=== PATIENT | female | born 1940 | race Caucasian/White ===

== ENCOUNTER 2019-01-18 13:28 | Observation (INO) ==
--- NOTE | 2019-01-18 14:52 | Emergency Department Note ---
Fall HPI - General Chief Complaint: Fall Stated Complaint: fall Time Seen by Provider: 01/18/19 14:48 Source: patient, family Mode of arrival: wheelchair - History of Present Illness HPI Narrative: 78-year-old female in ED with family present. Daughter does most of the talking for the patient. Daughter (Dalia) advises patient does live home alone, they visited daily and call every morning. Patient was seen 3:00 yesterday and called this morning. Daughter could tell patient was upset, patient stated she hurts all over. Daughter states patient has had increased falls over the last week, decreased appetite. Patient does have history is Alzheimer's and takes sertraline and Donepezil. Patient had her 3 month neuro check 2-3 weeks ago with no changes. Daughter feels this last week she has declined. Family went over to check on her this morning after the phone call and patient was laying in her bed and had blood on the floor and on her bed from her fall. MD Complaint: fall Onset (ago): hour(s) (12) Fall Witnessed: no Place Fall Occurred: home Loss of Consciousness: unsure Prolonged Down Time?: unclear Location of injury: head - Related Data Previous Rx's Medication Instructions Recorded HYDROcodone/APAP 5/325MG [[place] 1 tab PO Q4HP PRN #15 tab 01/14/18 5-325Mg] Ondansetron [Zofran ODT] 4 mg SL Q4-6HP PRN #10 tab 01/14/18 Tamsulosin [Flomax] 0.4 mg PO HS #3 cap 01/14/18 Potassium Chloride [Kdur] 10 meq PO ONCE 10 Days #10 tab 01/18/19 Allergies Allergy/AdvReac Type Severity Reaction Status Date / Time Penicillins Allergy Severe Unknown Verified 01/18/19 13:38 Review of Systems All systems ED: reviewed and negative except as stated. 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 Absent: conjunctival injection, periorbital swelling, periorbital tenderness ENT: normal oropharynx, mucous membranes dry, TM's normal bilaterally (right blocked with cerumen) Neck: Present: normal inspection, trachea midline. Absent: tenderness, lymphade nopathy Chest: Present: normal inspection, symmetric chest wall rise. Absent: tenderness Respiratory: Present: normal lung sounds bilaterally. Absent: respiratory distress, rales/crackles, wheezes Cardiovascular: Present: regular rate, normal rhythm. Absent: systolic murmur, diastolic murmur Abdominal: Present: soft, normal bowel sounds. Absent: distention, tenderness, guarding, rebound, rigidity Extremities: Present: normal inspection, other (bruising left hip, left knee, both old but within the last few days. Right forearm new with small abrasion) Back: Present: normal inspection, other (right CVA bruise-old within the last week). Absent: tenderness, CVA tenderness (R), CVA tenderness (L) Neurological: Present: alert Patient oriented to: Present: person. Absent: place, time Speech: Present: fluid speech Cranial nerves: EOM function (II, III, IV, ): Normal (slow with following and unable to fully look up), gag reflex (IX): Normal Cerebellar function: finger to nose: Normal Motor strength - LUE: 3/5 Motor strength - RUE: 3/5 Motor strength - LLE: 4/5 Motor strength - RLE: 4/5 Coma Scale Eye Opening: Spontaneous Coma Scale Motor Response: Obeys Commands Coma Scale Verbal Response: Oriented Coma Scale Total: 15 Psychiatric: Present: normal affect, normal mood, flat affect. Absent: depressed, agitated, anxious Skin: Present: warm, dry, intact, normal color. Absent: cool, diaphoretic Course Vital Signs Temperature 97.1 F 01/18/19 13:29 Pulse Rate 68 01/18/19 13:29 Respiratory Rate 16 01/18/19 13:29 Blood Pressure 105/66 01/18/19 13:29 Pulse Oximetry (%) 96 01/18/19 13:29 Temperature 97.1 F 01/18/19 13:29 Pulse Rate 78 01/18/19 17:42 Respiratory Rate 15 01/18/19 17:42 Blood Pressure 113/62 01/18/19 17:42 Pulse Oximetry (%) 95 01/18/19 17:42 Fall - MDM Narrative Medical decision making narrative: Daughter requested to talk to geriatric social worker to explore options to assist with her mother's care. She will provided list of additional services for in-home assistance. Patient's CT with normal age changes per her condition labs virtually unremarkab le except potassium was 2.7. 20 mEq K rider was started and family was notified of treatment plan. Daughter states patient has otherwise had a nervous stomach and does have mild diarrhea daily and has for years. Dr. Royal was consulted on patient's potassium and it was discussed 20 mEq K rider was appropriate. - Lab Data Lab results reviewed: Yes I reviewed the patient's lab results. Result diagrams: 01/18/19 14:27 01/18/19 14:27 Lab Results 01/18/19 01/18/19 01/18/19 Range/Units 14:20 14:27 14:27 WBC 7.9 (4.5-11.0) K/mcL RBC 5.18 (4.00-5.20) M/mcL Hgb 14.8 (12.0-15.0) g/dL Hct 45.1 (36.0-48.0) % MCV 87.0 (80.0-100.0) fL MCH 28.5 (26.0-34.0) pg MCHC 32.7 (31.0-36.0) g/dL RDW 14.4 (11.5-14.5) % Plt Count 200 (140-440) K/mcL MPV 10.1 (7.4-10.4) fL Gran % 85.3 H (38.0-78.0) % Lymph % (Auto) 6.1 L (15.5-49.0) % [place] % (Auto) 8.0 (1.0-12.0) % Eos % (Auto) 0.3 (0.0-7.0) % Baso % (Auto) 0.3 (0.0-2.0) % Gran # 6.8 (1.8-8.0) K/mcL Lymph # (Auto) 0.5 L (1.5-4.8) K/mcL [place] # (Auto) 0.6 (0.1-0.9) K/mcL Eos # (Auto) 0 (0.0-0.7) K/mcL Baso # (Auto) 0 (0.0-0.3) K/mcL Sodium 140 (133-145) mmol/L Potassium 2.7 L* (3.3-5.1) mmol/L Chloride 94 L (96-108) mmol/L Carbon Dioxide 29 (22-30) mmol/L Anion Gap 17.0 H (8-16) BUN 18 (8-23) mg/dl Creatinine 0.8 (0.6-1.1) mg/dl GFR Calculation 72 Glucose 158 H (70-105) mg/dL Calcium 9.3 (8.6-10.4) mg/dl Total Bilirubin 0.5 (0.0-1.0) mg/dL AST 21 (0-37) U/l ALT 13 (0-40) U/l Alkaline Phosphatase 67 (39-117) U/L Total Protein 6.8 (5.9-8.4) gm/dL Albumin 3.9 (3.2-5.2) gm/dL Globulin 2.9 (2.2-3.7) gm/dL Albumin/Globulin Ratio 1.3 (1.0-2.3) Urine Color Yellow Urine Appearance Hazy Urine pH 6.0 (5.0-9.0) Ur Specific [place] 1.021 (1.000-1.035) Urine Protein 30 A (NEG) mg/dL Urine Glucose (UA) Negative (NEG) mg/dL Urine Ketones 5/tr A (NEG) mg/dL Urine Occult Blood Neg (<0.03) mg/dL Urine Nitrate Neg (NEG) Urine Bilirubin Neg (NEG) mg/dL Urine Urobilinogen 2.0 A (NEG) mg/dL Ur Leukocyte Esterase Neg (NEG) /uL Urine RBC 1 (0-1) /hpf Urine WBC 6 H (0-4) /hpf Ur Squamous Epith Cells 1 (0-4) /hpf Ur Transition Epith Cell < 1 (0-2) /hpf Urine Bacteria 0 (0) /hpf Hyaline Casts 9 H (0-2) /lpf Urine Mucus Many A (0) /hpf Ur Culture Indicated? No - Radiology Data Radiology results reviewed: Yes I reviewed the patient's radiology results. Date of Service: 01/18/19 Procedure(s): CT head/brain wo con Accession Number(s): [id number] CLINICAL INFORMATION: Trauma COMPARISON: None. TECHNIQUE: 2.5 mm helical slices were obtained in the skull base to vertex. Following reconstruction, axial reformatted images were reviewed at bone and parenchymal windows. The exam was performed using radiation dose optimization techniques including, but not limited to, automated exposure control, adjustment of the mA and/or kV according to patient size and use of iterative reconstruction technique. FINDINGS: The ventricles, sulci, fissures, and cisterns are symmetrically enlarged compatible with mild age-related atrophy this is unchanged.. No extra-axial fluid collections are identified. Patchy chronic ischemic changes in the cerebral white matter expected for age - The cerebrum, brainstem and cerebellum are, otherwise, unremarkable. There is no evidence of hemorrhage, mass effect, or edema. Bone windows show no osseous abnormality. A 14 mm hematoma seen over the right parietal scalp region IMPRESSION: Mild atrophy and chronic ischemic changes in the the cerebral white matter expected for age. No change from 06/30/2017 MR. Interpreted and Authenticated by: Ronak Severino 01/18/19 Disposition Pt seen by [facility]/PA only: No ([place]) Clinical Impression: Hypokalemia Disposition: Home, Self-Care Condition: Good Instructions: Hypokalemia (ED) Additional Instructions: Follow-up with primary care within the next week to have potassium re-evaluated to verify it is stable. Return to ED with any additional concerns. Prescriptions: Potassium Chloride [Kdur] 10 meq PO ONCE 10 Days #10 tab Referrals: Lynnette Woods MD [Primary Care Provider] - Time of Disposition: 18:06
[2019-01-18 15:22] LABS: Basophils # (Auto) 0 K/mcL (0.0-0.3); Basophils % (Auto) 0.3 % (0.0-2.0); Eosinophils # (Auto) 0 K/mcL (0.0-0.7); Eosinophils % (Auto) 0.3 % (0.0-7.0); Granulocytes % (Auto) 85.3 % (38.0-78.0); Hematocrit 45.1 % (36.0-48.0); Hemoglobin 14.8 g/dL (12.0-15.0); Lymphocytes # (Auto) 0.5 K/mcL (1.5-4.8); Lymphocytes % (Auto) 6.1 % (15.5-49.0); Mean Corpuscular HGB Conc 32.7 g/dL (31.0-36.0); Mean Platelet Volume 10.1 fL (7.4-10.4); Monocytes # (Auto) 0.6 K/mcL (0.1-0.9); Platelet Count 200 K/mcL (140-440); RBC 5.18 M/mcL (4.00-5.20); Red Cell Distribution Width 14.4 % (11.5-14.5); WBC 7.9 K/mcL (4.5-11.0)
--- NOTE | 2019-01-18 15:35 | Cat Scan Report ---
CLINICAL INFORMATION: Trauma COMPARISON: None. TECHNIQUE: 2.5 mm helical slices were obtained in the skull base to vertex. Following reconstruction, axial reformatted images were reviewed at bone and parenchymal windows. The exam was performed using radiation dose optimization techniques including, but not limited to, automated exposure control, adjustment of the mA and/or kV according to patient size and use of iterative reconstruction technique. FINDINGS: The ventricles, sulci, fissures, and cisterns are symmetrically enlarged compatible with mild age-related atrophy this is unchanged.. No extra-axial fluid collections are identified. Patchy chronic ischemic changes in the cerebral white matter expected for age - The cerebrum, brainstem and cerebellum are, otherwise, unremarkable. There is no evidence of hemorrhage, mass effect, or edema. Bone windows show no osseous abnormality. A 14 mm hematoma seen over the right parietal scalp region IMPRESSION: Mild atrophy and chronic ischemic changes in the the cerebral white matter expected for age. No change from 06/30/2017 MR. Interpreted and Authenticated by: Ronak Severino 01/18/19
[2019-01-18 15:40] LABS: Appearance,Urine HAZY; Bacteria,Urine 0 /hpf (0); Bilirubin,Urine NEG (NEG); Color,Urine YELLOW; Culture Indicated,Urine NO; Glucose,Urine (UA) NEGATIVE (NEG); Ketones,Urine 5/TR mg/dL (NEG); Leukocyte Esterase,Urine NEG /uL (NEG); Mucus,Urine MANY /hpf (0); Nitrate,Urine NEG (NEG); Protein,Urine 30 mg/dL (NEG); Specific Gravity,Urine 1.021 (1.000-1.035); Urine Blood NEG mg/dL (<0.03); Urine Hyaline Cast 9 /lpf (0-2); Urine RBC 1 /hpf (0-1); Urine Squamous Epithelial Cell 1 /hpf (0-4); Urine Transitional Epi Cells < 1 /hpf (0-2); Urine WBC 6 /hpf (0-4)
[2019-01-18 15:50] LABS: ALT/SGPT 13 U/l (0-40); AST/SGOT 21 U/l (0-37); Albumin 3.9 gm/dL (3.2-5.2); Albumin/Globulin Ratio 1.3 (1.0-2.3); Alkaline Phosphatase 67 U/L (39-117); Bilirubin,Total 0.5 mg/dL (0.0-1.0); Blood Urea Nitrogen 18 mg/dl (8-23); Calcium 9.3 mg/dl (8.6-10.4); Carbon Dioxide 29 mmol/L (22-30); Chloride 94 mmol/L (96-108); Globulin 2.9 gm/dL (2.2-3.7); Glomerular Filtration Rate 72; Glucose 158 mg/dL (70-105)
[2019-01-18] MEDS ORDERED: POTASSIUM CHLORIDE 20 MEQ in DEXTROSE 5% IN WATER 250 ML IV ONE (15:54)
[2019-01-18 19:02] LABS: POC Blood Urea Nitrogen 20 mg/dl (8-23); POC CO2 28 mmol/L (22-30); POC Calcium, Ionized 1.11 mmol/L (1.16-1.32); POC Chloride 95 mmol/L (96-108); POC Creatinine 0.6 mg/dl (0.6-1.1); POC Glucose, Random 211 mg/dL (70-105); POC Potassium 2.6 mmol/L (3.3-5.1); POC Sodium 137 mmol/L (133-145)
[2019-01-18] MEDS ORDERED: ONDANSETRON 4 MG/2 ML VIAL IV PRN ×2 (20:00→21:09)
[2019-01-18] MEDS ORDERED: NALOXONE HCL 0.4 MG/ML VIAL IV PRN ×2 (20:00→21:09)
[2019-01-18] MEDS ORDERED: ACETAMINOPHEN 325 MG TABLET PO PRN ×2 (20:00→21:09)
--- NOTE | 2019-01-18 20:08 | Internal Med History&Physical ---
Medical - H&P: HPI Patient information: Note initiated : 01/18/19 at 8:05 pm Service Date, if different from initiated Date: [] Patient: Carmel Irvin a 78 y/o F admitted on for fall. Chief Complaint: [] History of present illness: Ms. Irvin is a 78 year old F with history of exam is dementia comes accompa nied by the daughter to the emergency room for evaluation of falls and weakness. The patient was noted normal yesterday around 4 PM. The patient lives by herself with family living close by. They called her every morning, to remind her to wake up and take her medications. She was nearly at her baseline status yesterday evening, this morning when the daughter called the patient was upset crying calling out that her back was hurting. When they went to check on her they noted that there was some blood on the floor as well as some blood on the pillowcase. The patient was later brought to the emergency room for evaluation According to the family the patient has not eaten well for the last few weeks. She has a history of Alzheimer's dementia, and her condition seems to have worsened over 3 to 4 weeks. She does not feel like eating much and needs coaxing to eat something. They have not noticed any other complaints or concerns from the patient. They have not seen her cough not have the seen or go to the bathroom often they have not seen any fevers chills or any other unusual behavior. No recent changes in medications have been done. On presenting to the emergency room patient is hemodynamically stable, labs revealed a low potassium of 2.6, 20 mg once of potassium was given without significant improvement in the patient's potassium level patient was therefore presented to the hospital for admission. Patient is unable to provide any meaningful history she is able to answer questions regarding the present state but unable to provide any past history. Most of the history was from the daughter who was at the bedside ROS unobtainable: due to mental status Medical - H&P: PM Medical history: Alzhimers Renal stones Family history: reviewed and not pertinent Social history: lives by self non smoker, no etoh Medical - H&P: Meds Home Medications Medication Instructions Recorded Confirmed Type HYDROcodone/APAP 5/325MG [[place] 1 tab PO Q4HP PRN #15 tab 01/14/18 Rx 5-325Mg] Ondansetron [Zofran ODT] 4 mg SL Q4-6HP PRN #10 tab 01/14/18 Rx Tamsulosin [Flomax] 0.4 mg PO HS #3 cap 01/14/18 Rx Potassium Chloride [Kdur] 10 meq PO ONCE 10 Days #10 tab 01/18/19 Rx Allergies Allergy/AdvReac Type Severity Reaction Status Date / Time Penicillins Allergy Severe Unknown Verified 01/18/19 13:38 Medical - H&P: Exam - Constitutional Vitals: Temp Pulse Resp BP Pulse Ox 98.8 F 78 18 113/57 97 01/18/19 19:06 01/18/19 19:06 01/18/19 19:06 01/18/19 19:06 01/18/19 19:06 Exam: GENERAL: The patient is thin frail old lady alert oriented x1 VITAL SIGNS: Reviewed and as noted elsewhere. HEENT: Head is normocephalic and atraumatic. Extraocular muscles are intact. Pupils are equal, round, and reactive to light. Nares appeared normal. Mouth terry ears any without lesions. Mucous membranes are dry. On the right posterior aspect of the scalp there is a small clot, no active bleeding no obvious laceration NECK: Normal to inspection, Supple, No lymphadenopathy or thyromegaly. LUNGS: Air entry equal on both sides, no wheezing, crackles or rhonchi noted. No accessory muscles of respiration HEART: Regular rate and rhythm normal, S1 and S2 heard, no Gallop, S3 or Rub Noted, No Gross murmur heard. ABDOMEN: Soft, nontender, and nondistended. Positive bowel sounds. No hepatosplenomegaly was noted. EXTREMITIES: No cyanosis, clubbing, rash, lesions or edema. NEUROLOGIC: Cranial nerves II through XII are grossly intact. Motor and Sensory System Grossly Intact PSYCHIATRIC: Pleasantly demented. SKIN: No ulceration or wounds noted, No jaundice, No rash noted. Medical - H&P: Reslt - Labs CBC & Chem 7: 01/18/19 14:27 01/18/19 14:27 Labs: Short CBC 01/18/19 Range/Units 14:27 WBC 7.9 (4.5-11.0) K/mcL Hgb 14.8 (12.0-15.0) g/dL Hct 45.1 (36.0-48.0) % Plt Count 200 (140-440) K/mcL BMP 01/18/19 14:27 Sodium 140 Potassium 2.7 L* Chloride 94 L Carbon Dioxide 29 BUN 18 Creatinine 0.8 Glucose 158 H Calcium 9.3 Liver Function 01/18/19 Range/Units 14:27 Total Bilirubin 0.5 (0.0-1.0) mg/dL AST 21 (0-37) U/l ALT 13 (0-40) U/l Alkaline Phosphatase 67 (39-117) U/L Albumin 3.9 (3.2-5.2) gm/dL Urine 01/18/19 Range/Units 14:20 Urine Color Yellow Urine Appearance Hazy Urine pH 6.0 (5.0-9.0) Ur Specific [place] 1.021 (1.000-1.035) Urine Protein 30 A (NEG) mg/dL Urine Glucose (UA) Negative (NEG) mg/dL Medical - H&P: A/P - Narrative A/P Narrative: A/P Severe Hypokalemia -due to decreased oral intake -IV and oral replacements, MG normal -check urine K level, not on diuretcs Dementia -conservatrive management, -on sertraline as per family for agitation, -start on thiamine, MV supplements Weakness/Increased falls -due to low K and decreased appetite -OT/PT/ST rehab. DVT hep sq DNR code status Soft diet.
[2019-01-18] MEDS ORDERED: HEPARIN 5,000 UNIT/ML VIAL SQ SCH (21:00)
[2019-01-18] MEDS ORDERED: THIAMINE 100 MG TABLET PO SCH (21:00)
[2019-01-18] MEDS ORDERED: FOLIC ACID/VITAMIN B COMP W-C 1 TAB TABLET PO SCH (21:00)
[2019-01-18] MEDS ORDERED: FAMOTIDINE 20 MG TABLET PO SCH (21:00)
[2019-01-18] MEDS ORDERED: POTASSIUM CHLORIDE 40 MEQ in DEXTROSE 5% IN WATER 500 ML IV ONE (21:09)
[2019-01-18] MEDS ORDERED: OLANZapine 10 MG VIAL IM PRN (21:09)
[2019-01-18] MEDS ORDERED: POTASSIUM CHLORIDE 20 MEQ PACKET PO ONE (21:09)
[2019-01-18] MEDS ORDERED: POTASSIUM CHLORIDE 20 MEQ/10 ML VIAL IV ONE (21:25)
[2019-01-18] MEDS: 0.9 % SODIUM CHLORIDE 10 ML SYRINGE IV SCH (21:41)
[2019-01-18] MEDS ORDERED: 0.9 % SODIUM CHLORIDE 10 ML SYRINGE IV SCH (22:00)
--- NOTE | 2019-01-19 03:50 | XRay Report ---
CLINICAL INFORMATION: fall - trauma, COMPARISON: None. FINDINGS: The heart size, mediastinum and pulmonary vessels are unremarkable. The lungs are clear. There are no effusions. The bones and soft tissues are within normal limits. IMPRESSION: Normal chest. Interpreted and Authenticated by: Ronak Severino 01/19/19
--- NOTE | 2019-01-19 03:52 | XRay Report ---
CLINICAL INFORMATION: Trauma - fall COMPARISON: None. FINDINGS: Lumbar spine is anatomically aligned. Mild chronic appearing T10, T11-T12 and L1 wedge compression fractures are noted. There is also moderate degenerative disc disease T10-11 and T11-T12 and mild degenerative disease L1-2. Mild degenerative disease also present at L4-5 and L5-S1. Moderate degenerative facet disease L5-S1. SI joints are normal. No soft tissue abnormality. IMPRESSION: No acute posttraumatic change. Degenerative change and mild chronic wedging T10-L1 vertebral bodies Interpreted and Authenticated by: Ronak Severino 01/19/19
--- NOTE | 2019-01-19 03:54 | XRay Report ---
CLINICAL INFORMATION: Fall - trauma COMPARISON: None. FINDINGS: No fracture identified. Mild osteoporosis noted. There is mild degenerative change both SI and hip joints. Soft tissues normal IMPRESSION: No fracture or posttraumatic change Interpreted and Authenticated by: Ronak Severino 01/19/19
[2019-01-19] MEDS: 0.9 % SODIUM CHLORIDE 10 ML SYRINGE IV SCH (05:16)
[2019-01-19 06:10] LABS: ALT/SGPT 12 U/l (0-40); AST/SGOT 21 U/l (0-37); Albumin 3.4 gm/dL (3.2-5.2); Albumin/Globulin Ratio 1.2 (1.0-2.3); Alkaline Phosphatase 60 U/L (39-117); Bilirubin,Direct < 0.2 mg/dL (0.0-0.3); Bilirubin,Total 0.5 mg/dL (0.0-1.0); Blood Urea Nitrogen 14 mg/dl (8-23); Calcium 8.8 mg/dl (8.6-10.4); Carbon Dioxide 25 mmol/L (22-30); Chloride 101 mmol/L (96-108); Globulin 2.9 gm/dL (2.2-3.7); Glomerular Filtration Rate 89; Glucose 98 mg/dL (70-105); Lactate Dehydrogenase 251 U/L (94-250); Phosphorous 1.6 mg/dL (2.7-4.5); Triglycerides 124 mg/dl (<150); Uric Acid 2.8 mg/dL (2.5-8.0)
[2019-01-19 06:35] LABS: Basophils # (Auto) 0 K/mcL (0.0-0.3); Basophils % (Auto) 0.4 % (0.0-2.0); Eosinophils # (Auto) 0.1 K/mcL (0.0-0.7); Eosinophils % (Auto) 1.4 % (0.0-7.0); Granulocytes % (Auto) 67.9 % (38.0-78.0); Hematocrit 42.4 % (36.0-48.0); Hemoglobin 13.9 g/dL (12.0-15.0); Lymphocytes # (Auto) 0.8 K/mcL (1.5-4.8); Lymphocytes % (Auto) 15.9 % (15.5-49.0); Mean Cell Volume 86.9 fL (80.0-100.0); Mean Corpuscular HGB Conc 32.7 g/dL (31.0-36.0); Mean Platelet Volume 9.6 fL (7.4-10.4); Monocytes # (Auto) 0.7 K/mcL (0.1-0.9); Monocytes % (Auto) 14.4 % (1.0-12.0); Platelet Count 187 K/mcL (140-440); RBC 4.87 M/mcL (4.00-5.20); Red Cell Distribution Width 14.6 % (11.5-14.5); WBC 5.1 K/mcL (4.5-11.0)
[2019-01-19] MEDS ORDERED: POTASSIUM CHLORIDE 20 MEQ PACKET PO ONE (07:12)
[2019-01-19] MEDS ORDERED: HEPARIN 5,000 UNIT/ML VIAL SQ SCH (09:00)
[2019-01-19] MEDS ORDERED: FAMOTIDINE 20 MG TABLET PO SCH (09:00)
--- NOTE | 2019-01-19 10:36 | Discharge Summary ---
Medical - DS: Prov Patient information: Note initiated : 01/19/19 at 10:31 am Service Date, if different from initiated Date: [] Patient: Carmel Irvin a 78 y/o F admitted on 01/18/19 for Fall. Chief Complaint: [] Date of admission: 01/18/19 20:55 Discharge date: 01/19/19 Primary care physician: Lynnette Woods Consults: 01/18/19 Consult to Physician [CONS] Stat Comment: Consulting Provider: Kevin Spring Reason For Exam: Physician to Consult Discharging clinician: Kevin Spring Medical - DS: Meds - Discharge Medications Prescriptions: Multivit,Ther Iron,Ca,FA & Min [Multivitamin W/Minerals] 1 tab PO DAILY #100 tab Potassium Chloride [Kdur] 10 meq PO DAILY #30 tab Active and Home Medications: Home Medications Potassium Chloride [Kdur] 10 meq PO ONCE 10 Days #10 tab 01/18/19 [Rx Last Taken Unknown] Sertraline [Zoloft] 50 mg PO DAILY 01/18/19 [History Confirmed 01/18/19 Last Taken Unknown] Medical - DS: Hosp Hospital course: Ms. Irvin is a 78 year old F with history of exam is dementia comes accompanied by the daughter to the emergency room for evaluation of falls and weakness. The patient was noted normal yesterday around 4 PM. The patient lives by herself with family living close by. They called her every morning, to remind h er to wake up and take her medications. She was nearly at her baseline status yesterday evening, this morning when the daughter called the patient was upset crying calling out that her back was hurting. When they went to check on her they noted that there was some blood on the floor as well as some blood on the pillowcase. The patient was later brought to the emergency room for evaluation According to the family the patient has not eaten well for the last few weeks. She has a history of Alzheimer's dementia, and her condition seems to have worsened over 3 to 4 weeks. She does not feel like eating much and needs coaxing to eat something. They have not noticed any other complaints or concerns from the patient. They have not seen her cough not have the seen or go to the bathroom often they have not seen any fevers chills or any other unusual behavior. No recent changes in medications have been done. On presenting to the emergency room patient is hemodynamically stable, labs reve aled a low potassium of 2.6, 20 mg once of potassium was given without significant improvement in the patient's potassium level patient was therefore presented to the hospital for admission. Patient is unable to provide any meaningful history she is able to answer questions regarding the present state but unable to provide any past history. Most of the history was from the daughter who was at the bedside 01/19 Patient seen and examined, no acute overnight events was sitting comfortably in the chair tolerating p.o. diet well. She is pleasantly demented and has a short attention span. She is hypokalemic because of decreased p.o. intake. Her potassium level today is 3.3 we can give her another 40 meq of p.o. potassium and discharge her with 10 mEq daily for at least 1 month. The patient also was advised to start a multivitamin supplement. X-rays of the lower spine and the hip were negative, head CT was negative chest x-ray was negative urine analysis not suggestive for infection. At this point I feel safe for discharging patient back home she would benefit with supervision with regards to her meals. Discharge diagnosis: Hypokalemia - Time Spent with Patient Total time spent providing and/or coordinating discharge services: Less than 30 minutes Medical - DS: Exam - Constitutional Vitals: Vital Signs Temp Pulse Pulse Resp BP BP BP 01/19/19 08:00 95 H 01/19/19 06:38 99.2 F H 14 101/79 01/19/19 00:01 74 113/66 01/18/19 23:33 62 01/18/19 23:31 98.3 F 66 117/69 01/18/19 22:00 98.1 F 80 18 110/67 01/18/19 21:46 69 110/67 01/18/19 21:31 100/61 01/18/19 21:20 80 111/76 01/18/19 21:00 98.8 F 77 18 111/76 01/18/19 20:55 01/18/19 20:40 98.8 F 78 18 105/66 01/18/19 19:06 98.8 F 78 18 113/57 01/18/19 18:14 67 16 127/70 01/18/19 17:42 78 15 113/62 01/18/19 16:53 74 110/63 01/18/19 15:45 70 18 98/68 01/18/19 13:29 97.1 F 68 16 105/66 Pulse Ox 01/19/19 08:00 01/19/19 06:38 01/19/19 00:01 98 01/18/19 23:33 98 01/18/19 23:31 98 01/18/19 22:00 100 01/18/19 21:46 98 01/18/19 21:31 01/18/19 21:20 97 01/18/19 21:00 97 01/18/19 20:55 99 01/18/19 20:40 97 01/18/19 19:06 97 01/18/19 18:14 98 01/18/19 17:42 95 01/18/19 16:53 96 01/18/19 15:45 97 01/18/19 13:29 96 Intake and Output 01/18/19 01/19/19 01/19/19 21:59 05:59 13:59 Intake Total 260 60 Output Total 400 50 Balance 260 -400 10 Intake: IV 260 Potassium Chloride 20 Meq In 260 Dextrose 5% in Water 250 ml @ 130 mls/hr IV ONCE ONE Rx#: [id number] Oral 60 Output: Void Amount 400 50 Other: Meal Breakfast Percent of Meal Consumed 25% Feeding Ability Independent Urine Appearance Clear Urine Color Bright Yellow Dark Yellow Weight 116 lb 12.8 oz 118 lb 2 oz Patient Weight 01/20/19 05:59 Weight 118 lb 2 oz Additional comments: Constitutional; Afebrile, cooperative, alert, not in distress. Respiratory system: Air Entry equal on both sides, No crackles or wheezing, no rhonchi. CVS- Rate rhythm regular, S1,S2 heard, no gallop, no rub. Abdomen- Soft nontender abdomen, no organomegaly, no tenderness, no guarding or rigidity, MACHINE PULLER- AOOx1, moving all extremities, no gross focal deficit noted. Medical - DS: Data Labs on day of discharge: Labs from last 24 hours 01/19/19 01/19/19 01/18/19 03:39 03:39 18:53 WBC 5.1 RBC 4.87 Hgb 13.9 Hct 42.4 POC Hct 41.0 MCV 86.9 MCH 28.4 MCHC 32.7 RDW 14.6 H Plt Count 187 MPV 9.6 Gran % 67.9 Lymph % (Auto) 15.9 [place] % (Auto) 14.4 H Eos % (Auto) 1.4 Baso % (Auto) 0.4 Gran # 3.5 Lymph # (Auto) 0.8 L [place] # (Auto) 0.7 Eos # (Auto) 0.1 Baso # (Auto) 0 POC Sodium 137 Sodium 139 POC Potassium 2.6 L* Potassium 3.3 POC Chloride 95 L Chloride 101 Carbon Dioxide 25 POC Total CO2 28 Anion Gap 13.0 POC BUN 20 BUN 14 Creatinine 0.6 POC Creatinine 0.6 GFR Calculation 89 Glucose 98 POC Glucose 211 H Uric Acid 2.8 Calcium 8.8 POC WB Ioniz Calcium 1.11 L Phosphorus 1.6 L Magnesium 1.8 Total Bilirubin 0.5 Direct Bilirubin < 0.2 GGT 14 AST 21 ALT 12 Alkaline Phosphatase 60 Lactate Dehydrogenase 251 H Total Protein 6.3 Albumin 3.4 Globulin 2.9 Albumin/Globulin Ratio 1.2 Triglycerides 124 Urine Color Urine Appearance Urine pH Ur Specific Hood Urine Protein Urine Glucose (UA) Urine Ketones Urine Occult Blood Urine Nitrate Urine Bilirubin Urine Urobilinogen Ur Leukocyte Esterase Urine RBC Urine WBC Ur Squamous Epith Cells Ur Transition Epith Cell Urine Bacteria Hyaline Casts Urine Mucus Ur Culture Indicated? Ur Random Potassium 01/18/19 01/18/19 01/18/19 14:27 14:27 14:27 WBC 7.9 RBC 5.18 Hgb 14.8 Hct 45.1 POC Hct MCV 87.0 MCH 28.5 MCHC 32.7 RDW 14.4 Plt Count 200 MPV 10.1 Gran % 85.3 H Lymph % (Auto) 6.1 L [place] % (Auto) 8.0 Eos % (Auto) 0.3 Baso % (Auto) 0.3 Gran # 6.8 Lymph # (Auto) 0.5 L [place] # (Auto) 0.6 Eos # (Auto) 0 Baso # (Auto) 0 POC Sodium Sodium 140 POC Potassium Potassium 2.7 L* POC Chloride Chloride 94 L Carbon Dioxide 29 POC Total CO2 Anion Gap 17.0 H POC BUN BUN 18 Creatinine 0.8 POC Creatinine GFR Calculation 72 Glucose 158 H POC Glucose Uric Acid Calcium 9.3 POC WB Ioniz Calcium Phosphorus Magnesium 1.9 Total Bilirubin 0.5 Direct Bilirubin GGT AST 21 ALT 13 Alkaline Phosphatase 67 Lactate Dehydrogenase Total Protein 6.8 Albumin 3.9 Globulin 2.9 Albumin/Globulin Ratio 1.3 Triglycerides Urine Color Urine Appearance Urine pH Ur Specific Hood Urine Protein Urine Glucose (UA) Urine Ketones Urine Occult Blood Urine Nitrate Urine Bilirubin Urine Urobilinogen Ur Leukocyte Esterase Urine RBC Urine WBC Ur Squamous Epith Cells Ur Transition Epith Cell Urine Bacteria Hyaline Casts Urine Mucus Ur Culture Indicated? Ur Random Potassium 01/18/19 01/18/19 14:20 14:20 WBC RBC Hgb Hct POC Hct MCV MCH MCHC RDW Plt Count MPV Gran % Lymph % (Auto) [place] % (Auto) Eos % (Auto) Baso % (Auto) Gran # Lymph # (Auto) [place] # (Auto) Eos # (Auto) Baso # (Auto) POC Sodium Sodium POC Potassium Potassium POC Chloride Chloride Carbon Dioxide POC Total CO2 Anion Gap POC BUN BUN Creatinine POC Creatinine GFR Calculation Glucose POC Glucose Uric Acid Calcium POC WB Ioniz Calcium Phosphorus Magnesium Total Bilirubin Direct Bilirubin GGT AST ALT Alkaline Phosphatase Lactate Dehydrogenase Total Protein Albumin Globulin Albumin/Globulin Ratio Triglycerides Urine Color Yellow Urine Appearance Hazy Urine pH 6.0 Ur Specific Hood 1.021 Urine Protein 30 A Urine Glucose (UA) Negative Urine Ketones 5/tr A Urine Occult Blood Neg Urine Nitrate Neg Urine Bilirubin Neg Urine Urobilinogen 2.0 A Ur Leukocyte Esterase Neg Urine RBC 1 Urine WBC 6 H Ur Squamous Epith Cells 1 Ur Transition Epith Cell < 1 Urine Bacteria 0 Hyaline Casts 9 H Urine Mucus Many A Ur Culture Indicated? No Ur Random Potassium 10.7 Medical - DS: A/P - Patient/Caregiver Discharge Instructions Activity: increase activity as tolerated Diet: Regular Diet Additional Instructions: Follow-up with your primary provider in 1 week Take potassium supplement 1 tablet once a day with meals in the morning Add a multivitamin supplement daily Consider using a nutritional supplement drink twice daily to maintain adequate nutrition if patient is unable to eat well Prescriptions: Potassium Chloride [Kdur] 10 meq PO ONCE 10 Days #10 tab - Follow up Plan Follow up with: Lynnette Woods MD [Primary Care Provider] - Disposition: Home, Self-Care Prognosis: Fair Rehab Potential: Fair I certify that the patient requires SNF services: No Overall status at discharge: patient is progressing back to baseline Medical - DS: Qual - VTE Deep Vein Thrombosis/Pulmonary Embolism Present on Admission: No
[2019-01-20] MEDS ORDERED: PNEUMOCOCCAL 23-VAL P-SAC VAC 0.5 ML SYRINGE IM ONE (10:00)
== END 2019-01-19 14:30 | disposition home or self-care (01) ==
LOC: ED 13:28 → ICU 13:28
PROVIDERS: ADMIT Internal Medicine; ATTEND Internal Medicine

== ENCOUNTER 2019-09-11 15:06 | Inpatient (IN) ==
--- NOTE | 2019-09-11 15:56 | XRay Report ---
CLINICAL INFORMATION: fall, pain, dec rom COMPARISON: 01/18/2019 FINDINGS: A mildly impacted mildly displaced acute subcapital fracture of the right hip appreciated No other osseous abnormality. SI and hip joints are normal in width and alignment. Soft tissues normal. IMPRESSION: Acute mildly displaced subcapital fracture - right hip Interpreted and Authenticated by: Ronak Severino 09/11/19
--- NOTE | 2019-09-11 15:56 | XRay Report ---
CLINICAL INFORMATION: Trauma. COMPARISON: 01/18/2019. TECHNIQUE: Portable chest FINDINGS: The heart size, mediastinum and pulmonary vessels are unremarkable. The lungs are clear. There are no effusions. The bones and soft tissues are within normal limits. IMPRESSION: Normal chest. Interpreted and Authenticated by: Ronak Severino 09/11/19
[2019-09-11] MEDS ORDERED: ONDANSETRON 4 MG/2 ML VIAL IV ONE (16:08)
[2019-09-11] MEDS ORDERED: HYDROmorphone 2 MG/ML VIAL IV PRN (16:08)
--- NOTE | 2019-09-11 16:38 | Emergency Department Note ---
Fall HPI - General Chief Complaint: Fall Stated Complaint: Fall Time Seen by Provider: 09/11/19 15:12 Source: patient Mode of arrival: wheelchair - History of Present Illness HPI Narrative: 78-year-old female presents with right hip pain. Onset about 2 hours ago. She was walking outside because it was a nice day and a car passed her and the noise kind of scared her and she stepped off a curb and tripped. Fell onto the right hip she believes. She has dementia and it is hard for her to remember things. This is her baseline according to family. According to family who is with her she is acting normal and baseline as well. Denies hitting her head. No loss of consciousness. She can recall the event. Believes she last ate and drank at 1130 today but she cannot be sure. Denies being on any blood thinners. No head, neck, or back pain. Denies any other injuries. - Related Data Home Medications Medication Instructions Recorded Confirmed Sertraline [Zoloft] 50 mg PO DAILY 01/18/19 09/11/19 Donepezil 10 mg PO DAILY 09/11/19 09/11/19 Previous Rx's Medication Instructions Recorded Multivit,Ther Iron,Ca,FA & Min 1 tab PO DAILY #100 tab 01/19/19 [Multivitamin W/Minerals] Potassium Chloride [Kdur] 10 meq PO DAILY #30 tab 01/19/19 Allergies Allergy/AdvReac Type Severity Reaction Status Date / Time Penicillins Allergy Severe Unknown Verified 01/18/19 13:38 Review of Systems All systems ED: reviewed and negative except as stated. Fall PMH - Past Medical History Medical history: Reports: other (Dementia) Reports: Recurrent Falls (within last week) Surgical history ED: Reports: non-contributory Psychiatric history: Reports: other (Dementia/memory loss) [employer] history: Reports: non-contributory - Social History smoking status: Never smoker Alcohol use: Reports: None Drug use: Reports: none Physical Exam Limitations: no limitations General appearance: alert, other (Pleasant and oriented x3 but often forgetful) Head: atraumatic, normocephalic, normal inspection Eye: Present: normal appearance, PERRL. Absent: conjunctival injection ENT: Present: normal exam, normal oropharynx, mucous membranes moist, normal external ear exam Neck: Present: normal inspection, full ROM, trachea midline. Absent: tenderness Chest: Present: symmetric chest wall rise Respiratory: Present: normal lung sounds bilaterally. Absent: respiratory distress, rales/crackles, wheezes, accessory muscle use Cardiovascular: Present: regular rate, normal heart sounds Extremities: Present: normal inspection. Absent: full ROM (Greatly limited active and passive range of motion to the right hip related to pain. No shortening or rotation. Sensation intact to lower extremities bilaterally. Skin is intact and there is no edema) Neurological: Present: alert, oriented X3 Coma Scale Eye Opening: Spontaneous Coma Scale Motor Response: Obeys Commands Coma Scale Verbal Response: Oriented Coma Scale Total: 15 Psychiatric: Present: normal affect, normal mood Skin: Present: warm, dry, intact, normal color Course Course Narrative: At 1625 Dr. Hardin is here seeing the patient. We are going to go ahead and admit and plan for surgery tomorrow as she cannot be sure the last time she ate or drink. Family is also with her and is agreeable. Vital Signs Temperature 97.7 F 09/11/19 15:08 Pulse Rate 73 09/11/19 15:08 Respiratory Rate 16 09/11/19 15:08 Blood Pressure 133/69 09/11/19 15:08 Pulse Oximetry (%) 96 09/11/19 15:08 Temperature 97.7 F 09/11/19 15:08 Pulse Rate 73 09/11/19 15:08 Respiratory Rate 16 09/11/19 15:08 Blood Pressure 133/69 09/11/19 15:08 Pulse Oximetry (%) 96 09/11/19 15:08 Fall - Lab Data Lab results reviewed: Yes I reviewed the patient's lab results. - Radiology Data Radiology results reviewed: Yes I reviewed the patient's radiology results. Disposition Pt seen by COAL GASIFICATION TECHNICIAN/PA only: Yes Clinical Impression: Fall, Closed right hip fracture Disposition: Xfer As Inpt ([facility]) Condition: Fair Referrals: Lynnette Woods MD [Primary Care Provider] - Giuliano Fernandez MD [Physician] - Time of Disposition: 16:39
[2019-09-11 17:14] LABS: Basophils # (Auto) 0.07 K/mcL (0.00-0.30); Basophils % (Auto) 0.7 % (0.0-2.0); Eosinophils # (Auto) 0.06 K/mcL (0.00-0.70); Eosinophils % (Auto) 0.6 % (0.0-7.0); Granulocytes % (Auto) 80.1 % (38.0-78.0); Hematocrit 35.9 % (34.1-44.9); Hemoglobin 11.8 g/dL (11.2-15.7); Lymphocytes # (Auto) 0.99 K/mcL (1.50-4.80); Lymphocytes % (Auto) 9.9 % (15.5-49.0); Mean Corpuscular HGB Conc 32.9 g/dL (31.0-36.0); Mean Platelet Volume 10.9 fL (7.4-10.4); Monocytes # (Auto) 0.87 K/mcL (0.10-0.90); Monocytes % (Auto) 8.7 % (1.0-12.0); Platelet Count 257 K/mcL (140-440); RBC 4.08 M/mcL (3.59-5.38); Red Cell Distribution Width 12.7 % (11.5-14.5)
[2019-09-11 17:34] LABS: Blood Urea Nitrogen 20 mg/dl (8-23); Calcium 9.4 mg/dl (8.6-10.4); Carbon Dioxide 26 mmol/L (22-30); Chloride 104 mmol/L (96-108); Glomerular Filtration Rate 84; Glucose 109 mg/dL (70-105)
[2019-09-11 18:10] LABS: Appearance,Urine HAZY; Bilirubin,Urine NEG (NEG); Color,Urine YELLOW; Culture Indicated,Urine NO; Glucose,Urine (UA) NEGATIVE (NEG); Ketones,Urine NEG (NEG); Leukocyte Esterase,Urine NEG /uL (NEG); Nitrate,Urine NEG (NEG); Protein,Urine NEG (NEG); Specific Gravity,Urine 1.018 (1.000-1.035); Urine Blood NEG mg/dL (<0.03); Urobilinogen,Urine NEG (NEG)
[2019-09-11] MEDS ORDERED: HYDROmorphone 2 MG/ML VIAL ONE (18:49)
--- NOTE | 2019-09-11 19:51 | Consultation ---
DATE OF CONSULTATION: 09/11/2019 PREOPERATIVE DIAGNOSIS: Right femoral neck fracture. POSTOPERATIVE DIAGNOSIS: Right femoral neck fracture. HISTORY OF PRESENT ILLNESS: The patient was seen in the emergency room with a chief complaint of a fall. She had immediate pain, swelling, and deformity of the right hip, was brought to the emergency room. This 78-year-old female who her daughter is with her, gives an excellent history. She does have Alzheimer's with dementia. She had a same level fall without loss of consciousness and the pain is located in the hip area. She is unable to bear weight and has otherwise been doing quite well. She has had problems eating in the past, but as of recent, she has done quite well other than the Alzheimer seems to be progressing. She does have a history of kidney stones. No chest pain, no shortness of breath. She does have a history of high blood pressure. She does live by herself. She is a nonsmoker and does not use alcohol. FAMILY HISTORY: Reviewed and noncontributory to the current problem. REVIEW OF SYSTEMS: The daughter is the one who gives data for the review of systems. MEDICATIONS: Hydrocodone, Zofran, Flomax, and potassium. ALLERGIES: SHE HAS ALLERGIES TO PENICILLIN. PHYSICAL EXAMINATION: VITAL SIGNS: Temperature 98.8, pulse 74, respiratory rate is 16, blood pressure 114/58, pulse ox of 98%. GENERAL: She is alert, cooperative, thin, frail lady. She is oriented x1. Vital signs as reviewed above. HEENT: Normocephalic, atraumatic. Extraocular movements intact. Her hearing is diminished bilaterally. NECK: Supple, nontender, no lymphadenopathy. LUNGS: Clear to auscultation without rales or rhonchi. HEART: Regular rate and rhythm, normal S1, S2, no gallops, no rubs. ABDOMEN: Soft, nontender, nondistended, positive bowel sounds. EXTREMITIES: Shows the right leg slightly shortened. Pain with any motion. She can move her toes up and down as well as her foot bilaterally. She has normal dorsal pedis pulses bilaterally. NEUROLOGIC: Intact and the cranial nerves II-XII are grossly intact. Motor sensory peripherally is intact to light touch sensation. PSYCHIATRY: She is demented, but very pleasant. SKIN: No ulcerations or lacerations. TEST REVIEW: X-rays of the right hip show an AP pelvis, AP and lateral that this does show fairly equal leg lengths. This shows slight shortening with an impacted femoral neck fracture. Bone quality is poor, very osteopenic, no labs have been drawn yet. DIAGNOSIS: Right femoral neck fracture, impacted. PLAN: The treatment I have recommended is cemented hemiarthroplasty and she may need a half-way facility afterwards given her high demand and living alone. RBH:hn Job ID: [id number] Doc ID: [id number] Giuliano Fernandez MD
[2019-09-11] MEDS: HYDROmorphone 2 MG/ML VIAL IV PRN (20:12)
[2019-09-12] MEDS: HYDROmorphone 2 MG/ML VIAL IV PRN (03:24)
[2019-09-12] MEDS ORDERED: ceFAZolin 2 GM in DEXTROSE 5% IN WATER 50 ML IV SCH (07:00)
[2019-09-12] MEDS ORDERED: KETAMINE 100 MG/ML ML IV ONE (07:00)
[2019-09-12] MEDS ORDERED: PHENYLEPHRINE 10 MG/ML VIAL IV ONE (07:00)
[2019-09-12] MEDS ORDERED: LIDOCAINE HCL/PF 100 MG/5 ML SYRINGE IV ONE (07:00)
[2019-09-12] MEDS ORDERED: PROPOFOL 200 MG/20 ML VIAL IV ONE (07:00)
[2019-09-12] MEDS ORDERED: GLYCOPYRROLATE 0.2 MG/ML VIAL IV ONE (07:00)
[2019-09-12] MEDS ORDERED: ONDANSETRON 4 MG/2 ML VIAL IV ONE (07:00)
[2019-09-12] MEDS ORDERED: DEXAMETHASONE 10 MG/ML VIAL IV ONE (07:00)
[2019-09-12] MEDS ORDERED: fentaNYL 100 MCG/2 ML VIAL IV ONE ×2 (07:00→08:29)
[2019-09-12] MEDS ORDERED: TRANEXAMIC ACID 1,000 MG/10 ML VIAL IV ONE ×3 (07:00→08:29)
[2019-09-12] MEDS ORDERED: LACTATED RINGERS 250 ML IV PRN (07:32)
[2019-09-12] MEDS ORDERED: ACETAMINOPHEN 1,000 MG/100 ML BOTTLE IV ONE (07:32)
[2019-09-12] MEDS ORDERED: FLUMAZENIL 0.1 MG/ML ML IV PRN (07:32)
[2019-09-12] MEDS ORDERED: BENZOCAINE/MENTHOL 1 LOZENGE PO PRN ×2 (07:32→08:01)
[2019-09-12] MEDS ORDERED: NALOXONE HCL 0.4 MG/ML VIAL IV PRN (07:32)
[2019-09-12] MEDS ORDERED: IPRATROPIUM/ALBUTEROL 3 ML AMPUL.NEB NEB PRN (07:32)
[2019-09-12] MEDS ORDERED: METHOCARBAMOL 1,000 MG/10 ML VIAL IV PRN (07:32)
[2019-09-12] MEDS ORDERED: LACTATED RINGERS 1,000 ML IV SCH (07:45)
[2019-09-12] MEDS ORDERED: POTASSIUM CHLORIDE 10 MEQ TABLET PO SCH (08:00)
[2019-09-12] MEDS ORDERED: BISACODYL 10 MG SUPP.RECT PR PRN (08:01)
[2019-09-12] MEDS ORDERED: FLEETS ADULT ENEMA PR PRN (08:01)
[2019-09-12] MEDS ORDERED: HYDROmorphone 2 MG/ML VIAL IV PRN (08:01)
[2019-09-12] MEDS ORDERED: ACETAMINOPHEN 325 MG TABLET PO PRN (08:01)
[2019-09-12] MEDS ORDERED: POLYETHYLENE GLYCOL 3350 17 GM PACKET PO PRN (08:01)
[2019-09-12] MEDS ORDERED: MAGNESIUM HYDROXIDE 30 ML ORAL.SUSP PO PRN (08:01)
[2019-09-12] MEDS ORDERED: TEMAZEPAM 15 MG CAPSULE PO PRN (08:01)
[2019-09-12] MEDS ORDERED: ONDANSETRON 4 MG/2 ML VIAL IV PRN (08:01)
--- NOTE | 2019-09-12 08:01 | Brief Operative Note ---
Date of procedure: 09/12/19 Pre-op diagnosis: Right hip fx Post-op diagnosis: same Procedure: Right hip cemented caleb arthroplsty Grafts/Implants: Yes Anesthesia: GETA Complications: none Surgeon: Giuliano Fernandez Supervisor Alum Plant: Sami Abbott Estimated blood loss (cc): 100 Specimens Removed/Pathology: none sent Condition: stable Disposition: PACU
[2019-09-12] MEDS ORDERED: METHOCARBAMOL 1,000 MG/10 ML VIAL ONE (08:23)
[2019-09-12] MEDS ORDERED: GENTAMICIN SULFATE 800 MG/20 ML VIAL IR ONE (08:24)
[2019-09-12] MEDS: fentaNYL 100 MCG/2 ML VIAL IV PRN ×3 (08:29→08:43)
[2019-09-12] MEDS ORDERED: DONEPEZIL 10 MG TABLET PO SCH (09:00)
[2019-09-12] MEDS ORDERED: SERTRALINE 50 MG TABLET PO SCH (09:00)
--- NOTE | 2019-09-12 09:06 | XRay Report ---
CLINICAL INFORMATION: Postoperative prostheses - history of acute right subcapital fracture COMPARISON: Preoperative x-ray 09/11/2019. FINDINGS: Right hip prostheses is anatomically aligned. No osseous abnormality. Both SI and left hip joints unremarkable. IMPRESSION: Negative Interpreted and Authenticated by: Ronak Severino 09/12/19
[2019-09-12] MEDS: 0.9 % SODIUM CHLORIDE 10 ML SYRINGE IV SCH ×5 (09:33→21:22)
[2019-09-12] MEDS: POTASSIUM CHLORIDE 10 MEQ TABLET PO SCH (09:39)
[2019-09-12] MEDS: oxyCODONE/APAP 5/325MG TABLET PO PRN ×2 (10:09→14:36)
[2019-09-12] MEDS: SERTRALINE 50 MG TABLET PO SCH (10:10)
[2019-09-12] MEDS: DOCUSATE SODIUM 100 MG CAPSULE PO SCH ×2 (10:10→21:21)
[2019-09-12] MEDS: ASPIRIN 325 MG ENTERIC COATED TABLET PO SCH ×2 (10:10→21:22)
[2019-09-12] MEDS: DONEPEZIL 10 MG TABLET PO SCH (10:10)
[2019-09-12] MEDS: LACTATED RINGERS 1,000 ML IV SCH ×4 (10:11→23:22)
[2019-09-12] MEDS: KETOROLAC 15 MG/ML VIAL IV PRN (10:31)
[2019-09-12] MEDS: ceFAZolin 1 GM VIAL IV SCH ×2 (14:37→21:21)
[2019-09-12] MEDS: SENNOSIDES 1 TABLET PO SCH (21:21)
[2019-09-13] MEDS: LACTATED RINGERS 1,000 ML IV SCH ×2 (02:50→16:21)
[2019-09-13] MEDS: KETOROLAC 15 MG/ML VIAL IV PRN (04:09)
[2019-09-13] MEDS: oxyCODONE/APAP 5/325MG TABLET PO PRN ×3 (04:39→23:43)
[2019-09-13] MEDS: 0.9 % SODIUM CHLORIDE 10 ML SYRINGE IV SCH ×3 (04:41→20:41)
[2019-09-13] MEDS: SERTRALINE 50 MG TABLET PO SCH (08:46)
[2019-09-13] MEDS: ASPIRIN 325 MG ENTERIC COATED TABLET PO SCH ×2 (08:46→20:41)
[2019-09-13] MEDS: DONEPEZIL 10 MG TABLET PO SCH (08:46)
[2019-09-13] MEDS: DOCUSATE SODIUM 100 MG CAPSULE PO SCH ×2 (08:46→20:41)
[2019-09-13] MEDS: POTASSIUM CHLORIDE 10 MEQ TABLET PO SCH (08:46)
[2019-09-13] MEDS ORDERED: PNEUMOCOCCAL 23-VAL P-SAC VAC 0.5 ML SYRINGE IM ONE (10:00)
[2019-09-13] MEDS ORDERED: FLU VACC QS2019-20(6MOS UP)/PF 60 MCG/0.5 ML SYRINGE IM ONE (10:00)
--- NOTE | 2019-09-13 16:09 | Orthopedic Progress Note ---
Subjective Patient information: Note initiated : 09/13/19 at 4:06 pm Service Date, if different from initiated Date: [] Patient: Carmel Irvin 78 y/o F admitted on 09/11/19 for Fall. Chief Complaint: [no pain but confused and no bm yet and is walking and eating well] Principal diagnosis: right hip fx with cemented caleb arthroplasty Objective Vital signs: Vital Signs Temp Pulse Resp BP Pulse Ox 09/13/19 12:00 97.9 F 85 16 105/56 93 09/13/19 07:28 98.3 F 76 18 90/52 95 09/13/19 04:03 99.8 F H 85 20 109/59 94 09/12/19 20:00 20 99 09/12/19 19:14 99.8 F H 20 91/56 99 09/12/19 17:59 98 Intake and Output 09/13/19 09/13/19 09/13/19 05:59 13:59 21:59 Intake Total 1560 340 Output Total 675 150 Balance 885 190 Intake: IV 990 Lactated Ringers 1,000 ml @ 100 990 mls/hr IV .Q10H KAEL Rx#: [id number] Oral 570 340 Output: Void Amount 675 150 Other: Meal Lunch Percent of Meal Consumed 50% Feeding Ability Independent Assist with Tray Set Up Urine Appearance Clear Urine Color Bright Yellow Urine Odor Normal Intake & Output: Intake & Output 09/13/19 09/13/19 09/13/19 05:59 13:59 21:59 Intake Total 1560 340 Output Total 675 150 Balance 885 190 Intake: IV 990 Lactated Ringers 1,000 ml @ 100 990 mls/hr IV .Q10H KAEL Rx#: [id number] Oral 570 340 Output: Void Amount 675 150 Other: Meal Lunch Percent of Meal Consumed 50% Feeding Ability Independent Assist with Tray Set Up Urine Appearance Clear Urine Color Bright Yellow Urine Odor Normal Incision: Yes healing Incision clean and dry: Yes Dressing: Yes clean Weight bearing status: full Neurological exam IM: Yes abnormal gait, Yes altered Extremities exam IM: Yes joint swelling, Yes Foot pink and warm - Periperhal Pulses Peripheral pulses: 1+: dorsalis pedis (L), dorsalis pedis (R) - Allied Health Allied health notes reviewed: case management (dc to snf tomorrow) - Labs CBC & BMP: 09/13/19 05:23 09/11/19 16:15 Labs: 09/13/19 09/11/19 05:23 16:15 Hgb 11.8 Hct 30.2 L 35.9
--- NOTE | 2019-09-13 16:12 | Discharge Summary ---
Ortho Discharge - [place] - Patient Instructions Diet: Regular Diet Activity: activity as tolerated, weight bearing as tolerated Total Hip Protocol: Follow activity instructions as provided by Physical Therapy. Dressing Care: May shower in 2 days - Follow Up Plan Follow Up Appointments: Lynnette Woods MD [Primary Care Provider] - Giuliano Fernandez MD [Physician] - Disposition: Xfer SNF Care Plan Goals: ambulate and get stronger Plan of Treatment: pt and ot to assist at snf Prognosis: Fair Rehab Potential: Good I certify that the patient requires SNF services: Yes Overall status at discharge: patient is progressing back to baseline - Orders For Discharge Prescriptions: HYDROcodone/APAP 5/325MG [Hortense 5-325Mg] 5 - 10 mg PO Q4HP PRN #30 tab PRN Reason: Pain Level 3-6 Prescription Printed Additional Discharge Orders: OT Discharge Order Location: None Selected Physical Therapy at Discharge - [place] Location: None Selected To[facility] Discharge Order Location: None Selected [facility] Location: None Selected
[2019-09-13] MEDS: SENNOSIDES 1 TABLET PO SCH (20:40)
[2019-09-14] MEDS: oxyCODONE/APAP 5/325MG TABLET PO PRN ×3 (00:42→12:36)
[2019-09-14] MEDS: LACTATED RINGERS 1,000 ML IV SCH ×2 (00:43→10:49)
[2019-09-14] MEDS: 0.9 % SODIUM CHLORIDE 10 ML SYRINGE IV SCH (05:50)
[2019-09-14] MEDS: DOCUSATE SODIUM 100 MG CAPSULE PO SCH (08:42)
[2019-09-14] MEDS: ASPIRIN 325 MG ENTERIC COATED TABLET PO SCH (08:42)
[2019-09-14] MEDS: POTASSIUM CHLORIDE 10 MEQ TABLET PO SCH (08:43)
[2019-09-14] MEDS: SERTRALINE 50 MG TABLET PO SCH (08:43)
[2019-09-14] MEDS: DONEPEZIL 10 MG TABLET PO SCH (08:43)
--- NOTE | 2019-09-19 08:01 | Operative Note ---
DATE OF OPERATION: 09/12/2019 PREOPERATIVE DIAGNOSIS: Right hip fracture, femoral neck, displaced. POSTOPERATIVE DIAGNOSIS: Right hip fracture, femoral neck, displaced. PROCEDURE: Right cemented hemiarthroplasty. SURGEON: Giuliano Fernandez MD BRAIDED RUG MAKER: Sami Abbott PA-C. This provider's expertise and technical skill were required throughout the case. The GERALD assisted with preoperative coordination, intraoperative retraction, wound closure, dressing and splint application, as well as postoperative documentation and care coordination. ANESTHESIA: General endotracheal anesthesia. IMPLANTS: Lindsay components hemiarthroplasty. COMPLICATIONS: None. ESTIMATED BLOOD LOSS: 100 mL SPECIMENS: None. CONDITION: Stable. DISPOSITION: PACU. DESCRIPTION OF PROCEDURE: The patient was brought to the operating room and after general endotracheal anesthesia, had the right hip sterilely prepped and draped in the usual sterile fashion in a left lateral position. A timeout was performed and the right hip was confirmed as the operative site by initials, consent form and x-ray. Tranexamic acid had been given as well as preoperative antibiotics. A superior approach was performed to the hip, exposing the joint and removing the broken fragment which was the femoral head. We made the neck cut at 15 mm above the lesser trochanter and removed the ligament from the acetabulum. We then broached up for a cemented stem. This was positioned in 15 degrees of anteversion and we trialed the standard neck length. This seemed to be very stable throughout the arc of motion. We irrigated thoroughly and cemented into place a Lindsay stem and then a neutral neck length dual mobility ball was then positioned into the hip. We irrigated thoroughly, repaired the capsule with #1 Ethibond, closed the fascial layer with #1 Stratafix and the skin was closed with Stratafix and adhesive closure. A sterile bandage was applied. The patient tolerated this well. RBH:vivian Job ID: [id number] Doc ID: [id number] Giuliano Fernandez MD
== END 2019-09-14 14:00 | DRG 470 ==
LOC: ED 15:06 → MEDSUR 17:25
PROVIDERS: ADMIT Orthopaedic Surgery; ATTEND Orthopaedic Surgery